=== PATIENT | male | born 1990 | race African-American/Black ===

== ENCOUNTER → 2017-04-17 | Emergency (ER) | payer OTHER ==
[~2017-04-17] VITALS: Ht 185.4 cm; Wt 77.1 kg
--- NOTE | 2017-04-17 01:16 | Emergency Room Report ---
History of Present Illness General Chief Complaint: Overdose Source: Patient, EMS Present Illness HPI Is a 26-year-old male with a history of alcohol abuse and Xanax abuse. He presents with chief complaint overdose. He was passed out on the couch and roommate could not wake him up so they called 911. EMS was able to arouse him and he was combative. Patient denies suicidal thought homicidal thought. Does seem to be a frequent issue with him. He denies any other complaint. No injury. He tell me that he likes to drink but does not like to be in this condition. Allergies: Coded Allergies: UNABLE TO ASSESS (Unverified , 04/17/17) Patient History Past Medical History: see triage record, old chart reviewed Past Surgical History: none Pertinent Family History: none Social History: Reports: alcohol use, drug use Immunizations: other Reviewed Nursing Documentation: PMH: Agreed, PSxH: Agreed Nursing Documentation-PMH Past Medical History Deferred: Pt Cognitively Impaired Review of Systems Eye: Denies: blurred vision, eye pain ENT: Denies: ear pain, nose congestion, throat swelling Respiratory: Denies: cough, shortness of breath Cardiovascular: Denies: chest pain, palpitations Gastrointestinal: Denies: abdominal pain, diarrhea, nausea, vomiting Musculoskeletal: Denies: back pain, joint pain Skin: Denies: rash Neurological: Denies: headache, numbness Endocrine: Denies: increased thirst, increased urine Hematologic/Lymphatic: Denies: easy bruising All Other Systems: negative except mentioned in HPI Physical Exam Vital Signs Date Time Temp Pulse Resp B/P Pulse Ox O2 Delivery O2 Flow Rate FiO2 04/17/17 00:42 98.4 102 12 154/89 99 Room Air vitals normal Sp02 EP Interpretation: reviewed, normal General Appearance: well appearing, no apparent distress, alert, other - Intoxicated Head: normocephalic, atraumatic Eyes: bilateral eye EOMI, bilateral eye PERRL ENT: hearing grossly normal, normal pharynx Neck: full range of motion, supple, no meningismus Respiratory: chest non-tender, lungs clear, normal breath sounds Cardiovascular #1: regular rate, rhythm, no murmur Gastrointestinal: normal bowel sounds, non tender, no mass, no organomegaly, no bruit, non-distended Musculoskeletal: back normal, gait/station normal, normal range of motion Psychiatric: mood/affect normal Skin: warm/dry Medical Decision Making Diagnostic Impression: Primary Impression: Drug overdose Qualified Codes: T50.901A - Poisoning by unspecified drugs, medicaments and biological substances, accidental (unintentional), initial encounter Additional Impression: Alcohol intoxication Qualified Codes: F10.920 - Alcohol use, unspecified with intoxication, uncomplicated ER Course Patient present with Xanax overdose and alcohol intoxication. He is awake and cooperative now. Does not want to stay. His parents are here and and willing to take him home. There will taken to rehabilitation tomorrow. According to his father this happen a lot. We'll discharge home. Last Vital Signs Date Time Temp Pulse Resp B/P Pulse Ox O2 Delivery O2 Flow Rate FiO2 04/17/17 00:42 98.4 102 12 154/89 99 Room Air Status: improved Disposition: HOME, SELF-CARE Condition: Stable Patient Instructions: OVERDOSE, Accidental (Adult) Additional Instructions: Followup with your Dr. in one to 2 days. Go to rehabilitation. Return if symptom worsen. SAVANNAH MORA M.D. Apr 17, 2017 01:16
[2017-04-17 01:25] VITALS: BP 117/84
[2017-04-17 01:29] VITALS: BP 117/85
== END | disposition home or self-care (01) ==
LOC: EDBD 00:42 → EMR 00:59
DX: T50.901A Poisoning by unspecified drugs, medicaments and biological substances, accidental (unintentional), initial encounter (principal); F10.920 Alcohol use, unspecified with intoxication, uncomplicated; X58.XXXA Exposure to other specified factors, initial encounter; Y93.9 Activity, unspecified; Y92.9 Unspecified place or not applicable
CPT/HCPCS: 99284